=== PATIENT | male | born 1990 | race Caucasian/White ===

== ENCOUNTER 2024-06-11 07:19 | Emergency (ER) | payer OTHER ==
[2024-06-11] MEDS ORDERED: Sodium Chloride 0.9% 10 ML Syringe FLUSH PRN (07:22)
[2024-06-11 07:28] LABS: APPEARANCE,URINE CLEAR (CLEAR); BILIRUBIN,URINE NEGATIVE (NEGATIVE); COLOR,URINE YELLOW (YELLOW); GLUCOSE,URINE NEGATIVE (NEGATIVE); KETONES,URINE NEGATIVE (NEGATIVE); LEUKOCYTE ESTERASE,URINE NEGATIVE (NEGATIVE); NITRITE,URINE NEGATIVE (NEGATIVE); OCCULT BLOOD,URINE MODERATE (NEGATIVE); PROTEIN,URINE 30 mg/dL (NEGATIVE); UROBILINOGEN,URINE 0.2 EU/dL (0.2-1.0)
[2024-06-11] MEDS: Sodium Chloride 0.9% 1,000 ML IV ONE (07:32)
[2024-06-11 07:34] LABS: BACTERIA,URINE NOT SEEN /HPF (NOT SEEN); EPITHELIAL CELLS,URINE NOT SEEN /HPF (NOT SEEN); WBC,URINE NOT SEEN /HPF (0-5)
[2024-06-11 07:35] LABS: MUCUS,URINE OCCASIONAL /HPF (NOT SEEN)
[2024-06-11] MEDS: Ketorolac 30 MG/ML SDV IVPUSH ONE (07:36)
[2024-06-11] MEDS: Ondansetron 4 MG/2 ML SDV IVPUSH PRN (07:39)
[2024-06-11] MEDS: Tamsulosin 0.4 MG Cap.ER PO ONE (08:51)
[2024-06-11] MEDS: Take Home: Ketorolac 10 MG Tab, 4 Tab Pack PO ONE (09:05)
== END 2024-06-11 09:10 | disposition home or self-care (01) ==
LOC: CC.ED 07:19
DX: N20.0 Calculus of kidney (principal); Z79.51 Long term (current) use of inhaled steroids; Z79.899 Other long term (current) drug therapy
CPT/HCPCS: 74176; 81001; 96361; 96374; 96375; 99284; 99284-25; A9270-GY; J1885; J2405; J7030

== ENCOUNTER 2024-09-08 08:35 | Emergency (ER) | payer OTHER ==
[2024-09-08] MEDS ORDERED: Naloxone 2 MG/2 ML Syringe IVPUSH PRN (08:50)
[2024-09-08 08:59] LABS: APPEARANCE,URINE CLEAR (CLEAR); BASOPHILS ABSOLUTE AUTO 0.02 10^3/uL (0.00-0.50); BASOPHILS PERCENT AUTO 0.3 % (0-1); BILIRUBIN,URINE NEGATIVE (NEGATIVE); COLOR,URINE YELLOW (YELLOW); EOSINOPHILS ABSOLUTE AUTO 0.15 10^3/uL (0.00-1.50); GLUCOSE,URINE NEGATIVE (NEGATIVE); HEMATOCRIT 43.2 % (42.0-52.0); HEMOGLOBIN 14.6 g/dL (14.0-18.0); IMMATURE GRAN ABSOLUTE AUTO 0.02 10^3/uL (0.00-0.49); IMMATURE GRAN PERCENT AUTO 0.3 % (0.0-4.9); KETONES,URINE NEGATIVE (NEGATIVE); LEUKOCYTE ESTERASE,URINE NEGATIVE (NEGATIVE); LYMPHOCYTES ABSOLUTE AUTO 1.83 10^3/uL (0.60-5.00); LYMPHOCYTES PERCENT AUTO 24.1 % (24-44); MEAN CORPUSCULAR HEMOGLOBIN 30.2 pg (27.0-32.0); MEAN CORPUSCULAR HGB CONC 33.8 g/dL (32.0-36.0); MEAN CORPUSCULAR VOLUME 89.4 fL (83.0-97.0); MONOCYTES ABSOLUTE AUTO 0.65 10^3/uL (0.00-1.50); MONOCYTES PERCENT AUTO 8.6 % (0-10); NEUTROPHILS ABSOLUTE AUTO 4.92 x10^3/uL (1.80-8.00); NEUTROPHILS PERCENT AUTO 64.7 % (41-71); NITRITE,URINE NEGATIVE (NEGATIVE); OCCULT BLOOD,URINE NEGATIVE (NEGATIVE); PLATELET COUNT,PLT 221 10^3/uL (150-400); PROTEIN,URINE NEGATIVE (NEGATIVE); RED BLOOD CELL COUNT 4.83 x10^6/uL (4.50-6.00); UROBILINOGEN,URINE 0.2 EU/dL (0.2-1.0); WHITE BLOOD CELL COUNT,WBC 7.6 10^3/uL (4.0-11.0)
[2024-09-08 09:17] LABS: ALBUMIN 3.9 g/dL (3.4-5.0); BILIRUBIN TOTAL 0.7 mg/dL (0.0-1.0); C-REACTIVE PROTEIN 2.24 mg/dL (<=0.50); CALCIUM 9.3 mg/dL (8.4-10.1); CREATININE 1.1 mg/dL (0.7-1.3); EST CRCL DRUG DOSING (CG) 106.94 mL/min; POTASSIUM,K 4.5 mEq/L (3.5-5.0); PROTEIN TOTAL,TP 7.5 g/dL (6.4-8.2)
[2024-09-08] MEDS: HYDROmorphone 1 MG/ML Syringe IVPUSH ONE (09:26)
[2024-09-08] MEDS: Sodium Chloride 0.9% 1,000 ML IV ONE (09:26)
[2024-09-08] MEDS: Iopamidol 755 Mg/ML 100 ML Bottle IVPUSH ONE (10:35)
[2024-09-08] MEDS: Ketorolac 30 MG/ML SDV IVPUSH ONE (10:57)
== END 2024-09-08 11:13 | disposition home or self-care (01) ==
LOC: CC.ED 08:35
DX: K63.89 Other specified diseases of intestine (principal); J45.909 Unspecified asthma, uncomplicated; K21.9 Gastro-esophageal reflux disease without esophagitis; Z79.899 Other long term (current) drug therapy
CPT/HCPCS: 36415; 74177; 80053; 81003; 85025; 86140; 96361; 96374; 96375; 99284; 99284-25; J1171; J1885; J7030; Q9967

== ENCOUNTER 2024-09-14 17:22 | Emergency (ER) | payer OTHER ==
[2024-09-14] MEDS: Ondansetron 4 MG/2 ML SDV IVPUSH STA (17:33)
[2024-09-14] MEDS: Ketorolac 30 MG/ML SDV IVPUSH ONE (17:34)
[2024-09-14 17:40] LABS: BASOPHILS ABSOLUTE AUTO 0.02 10^3/uL (0.00-0.50); BASOPHILS PERCENT AUTO 0.2 % (0-1); EOSINOPHILS ABSOLUTE AUTO 0.12 10^3/uL (0.00-1.50); EOSINOPHILS PERCENT AUTO 1.3 % (0-6); HEMATOCRIT 44.2 % (42.0-52.0); HEMOGLOBIN 15.2 g/dL (14.0-18.0); IMMATURE GRAN ABSOLUTE AUTO 0.06 10^3/uL (0.00-0.49); IMMATURE GRAN PERCENT AUTO 0.6 % (0.0-4.9); LYMPHOCYTES ABSOLUTE AUTO 2.63 10^3/uL (0.60-5.00); LYMPHOCYTES PERCENT AUTO 27.5 % (24-44); MEAN CORPUSCULAR HEMOGLOBIN 29.9 pg (27.0-32.0); MEAN CORPUSCULAR HGB CONC 34.4 g/dL (32.0-36.0); MONOCYTES ABSOLUTE AUTO 0.73 10^3/uL (0.00-1.50); MONOCYTES PERCENT AUTO 7.6 % (0-10); NEUTROPHILS PERCENT AUTO 62.8 % (41-71); PLATELET COUNT,PLT 335 10^3/uL (150-400); RED BLOOD CELL COUNT 5.08 x10^6/uL (4.50-6.00); WHITE BLOOD CELL COUNT,WBC 9.6 10^3/uL (4.0-11.0)
[2024-09-14 18:08] LABS: ALANINE AMINOTRANSFERASE,ALT 100 U/L (12-78); ALBUMIN 4.2 g/dL (3.4-5.0); ALKALINE PHOSPHATASE 108 U/L (46-116); ASPARTATE AMNIOTRANSFERASE,AST 21 U/L (15-37); BILIRUBIN TOTAL 0.7 mg/dL (0.0-1.0); BLOOD UREA NITROGEN,BUN 18 mg/dL (7-18); CALCIUM 9.4 mg/dL (8.4-10.1); CARBON DIOXIDE,CO2 25 mmol/L (21-32); CHLORIDE,CL 102 mEq/L (98-106); CREATININE 1.3 mg/dL (0.7-1.3); GLUCOSE RANDOM 149 mg/dL (75-99); PROTEIN TOTAL,TP 7.9 g/dL (6.4-8.2); SODIUM,NA 140 mEq/L (136-145)
[2024-09-14 18:09] LABS: C-REACTIVE PROTEIN < 0.50 mg/dL (<=0.50); ESTIMATED GFR 74 mL/min (>=60)
== END 2024-09-14 18:10 | disposition home or self-care (01) ==
LOC: CC.ED 17:22
DX: N20.0 Calculus of kidney (principal); J45.909 Unspecified asthma, uncomplicated; K21.9 Gastro-esophageal reflux disease without esophagitis; Z79.899 Other long term (current) drug therapy
CPT/HCPCS: 36415; 74176; 80053; 85025; 86140; 96374; 96375; 99284-25; J1885; J2405

== ENCOUNTER 2024-09-25 08:17 | Inpatient (IN) | payer OTHER ==
[2024-09-25] MEDS: Acetaminophen 500 MG Tab PO ONE (08:32)
[2024-09-25] MEDS: Lactated Ringers 1,000 ML IV ONE ×2 (08:38→09:53)
[2024-09-25] MEDS: Acetaminophen 500 MG Tab ONE (08:39)
[2024-09-25 08:41] LABS: BASOPHILS ABSOLUTE AUTO 0.04 10^3/uL (0.00-0.50); BASOPHILS PERCENT AUTO 0.4 % (0-1); EOSINOPHILS ABSOLUTE AUTO 0.09 10^3/uL (0.00-1.50); EOSINOPHILS PERCENT AUTO 0.9 % (0-6); HEMATOCRIT 42.7 % (42.0-52.0); HEMOGLOBIN 14.7 g/dL (14.0-18.0); IMMATURE GRAN ABSOLUTE AUTO 0.03 10^3/uL (0.00-0.49); IMMATURE GRAN PERCENT AUTO 0.3 % (0.0-4.9); LYMPHOCYTES ABSOLUTE AUTO 1.01 10^3/uL (0.60-5.00); LYMPHOCYTES PERCENT AUTO 9.7 % (24-44); MEAN CORPUSCULAR HEMOGLOBIN 30.1 pg (27.0-32.0); MEAN CORPUSCULAR HGB CONC 34.4 g/dL (32.0-36.0); MEAN CORPUSCULAR VOLUME 87.3 fL (83.0-97.0); MONOCYTES ABSOLUTE AUTO 1.06 10^3/uL (0.00-1.50); MONOCYTES PERCENT AUTO 10.2 % (0-10); NEUTROPHILS ABSOLUTE AUTO 8.13 x10^3/uL (1.80-8.00); NEUTROPHILS PERCENT AUTO 78.5 % (41-71); PLATELET COUNT,PLT 249 10^3/uL (150-400); RED BLOOD CELL COUNT 4.89 x10^6/uL (4.50-6.00); WHITE BLOOD CELL COUNT,WBC 10.4 10^3/uL (4.0-11.0)
[2024-09-25 08:54] LABS: ALBUMIN 4.1 g/dL (3.4-5.0); BILIRUBIN TOTAL 1.2 mg/dL (0.0-1.0); CALCIUM 9.1 mg/dL (8.4-10.1); CREATININE 1.3 mg/dL (0.7-1.3); EST CRCL DRUG DOSING (CG) 87.05 mL/min; MAGNESIUM 1.7 mg/dL (1.8-2.4); POTASSIUM,K 3.9 mEq/L (3.5-5.0); PROTEIN TOTAL,TP 7.9 g/dL (6.4-8.2)
[2024-09-25] MEDS: Ketorolac 30 MG/ML SDV IVPUSH ONE (08:59)
[2024-09-25 10:07] LABS: CORONAVIRUS COVID-19 NAA NEGATIVE (NEGATIVE); INFLUENZA A NAA NEGATIVE (NEGATIVE); INFLUENZA B NAA NEGATIVE (NEGATIVE); RESPIRATORY SYNCYTIAL VIR NAA NEGATIVE (NEGATIVE)
[2024-09-25 10:26] LABS: APPEARANCE,URINE CLEAR (CLEAR); BILIRUBIN,URINE NEGATIVE (NEGATIVE); COLOR,URINE YELLOW (YELLOW); GLUCOSE,URINE NEGATIVE (NEGATIVE); KETONES,URINE NEGATIVE (NEGATIVE); LEUKOCYTE ESTERASE,URINE NEGATIVE (NEGATIVE); NITRITE,URINE NEGATIVE (NEGATIVE); OCCULT BLOOD,URINE NEGATIVE (NEGATIVE); PROTEIN,URINE TRACE mg/dL (NEGATIVE); UROBILINOGEN,URINE 0.2 EU/dL (0.2-1.0)
[2024-09-25 10:34] LABS: BACTERIA,URINE OCCASIONAL /HPF (NOT SEEN); EPITHELIAL CELLS,URINE OCCASIONAL /HPF (NOT SEEN)
[2024-09-25] MEDS: Azithromycin 250 MG Tab PO ONE (10:40)
[2024-09-25] MEDS: cefTRIAXone 2 GM Vial IVPUSH ONE (10:40)
[2024-09-25] MEDS ORDERED: Polyethylene Glycol 3350 Powder 17 GM Packet PO PRN (11:01)
[2024-09-25] MEDS ORDERED: Docusate Sodium 100 MG Cap PO PRN (11:01)
[2024-09-25] MEDS ORDERED: Ondansetron 4 MG Tab.DIS PO PRN (11:01)
[2024-09-25] MEDS ORDERED: Albuterol 6.7 GM Inhaler INH PRN (11:01)
[2024-09-25] MEDS: Sodium Chloride 0.9% 1,000 ML IV SCH (11:53)
[2024-09-25] MEDS: Acetaminophen 325 MG Tab PO PRN (13:00)
[2024-09-25] MEDS: Ketorolac 30 MG/ML SDV IVPUSH PRN (15:06)
[2024-09-25] MEDS: Albuterol/Ipratropium 3.0-0.5 MG/3 ML Neb Soln NEB PRN (17:15)
[2024-09-25] MEDS ORDERED: Naloxone 2 MG/2 ML Syringe IVPUSH PRN (17:46)
[2024-09-25] MEDS: Morphine 4 MG/ML VIAL IVPUSH PRN (18:00)
[2024-09-25 18:15] LABS: BASOPHILS ABSOLUTE AUTO 0.03 10^3/uL (0.00-0.50); BASOPHILS PERCENT AUTO 0.4 % (0-1); EOSINOPHILS ABSOLUTE AUTO 0.05 10^3/uL (0.00-1.50); EOSINOPHILS PERCENT AUTO 0.6 % (0-6); HEMATOCRIT 37.7 % (42.0-52.0); HEMOGLOBIN 12.7 g/dL (14.0-18.0); IMMATURE GRAN ABSOLUTE AUTO 0.02 10^3/uL (0.00-0.49); IMMATURE GRAN PERCENT AUTO 0.2 % (0.0-4.9); LYMPHOCYTES ABSOLUTE AUTO 0.84 10^3/uL (0.60-5.00); LYMPHOCYTES PERCENT AUTO 10.2 % (24-44); MEAN CORPUSCULAR HEMOGLOBIN 29.8 pg (27.0-32.0); MEAN CORPUSCULAR HGB CONC 33.7 g/dL (32.0-36.0); MEAN CORPUSCULAR VOLUME 88.5 fL (83.0-97.0); MONOCYTES ABSOLUTE AUTO 1.03 10^3/uL (0.00-1.50); MONOCYTES PERCENT AUTO 12.6 % (0-10); NEUTROPHILS ABSOLUTE AUTO 6.23 x10^3/uL (1.80-8.00); PLATELET COUNT,PLT 206 10^3/uL (150-400); RED BLOOD CELL COUNT 4.26 x10^6/uL (4.50-6.00); WHITE BLOOD CELL COUNT,WBC 8.2 10^3/uL (4.0-11.0)
[2024-09-25 18:32] LABS: ALANINE AMINOTRANSFERASE,ALT 90 U/L (12-78); ALBUMIN 3.5 g/dL (3.4-5.0); ALKALINE PHOSPHATASE 101 U/L (46-116); ASPARTATE AMNIOTRANSFERASE,AST 56 U/L (15-37); BILIRUBIN TOTAL 0.8 mg/dL (0.0-1.0); BLOOD UREA NITROGEN,BUN 11 mg/dL (7-18); CALCIUM 8.6 mg/dL (8.4-10.1); CARBON DIOXIDE,CO2 25 mmol/L (21-32); CHLORIDE,CL 104 mEq/L (98-106); CREATININE 1.2 mg/dL (0.7-1.3); EST CRCL DRUG DOSING (CG) 94.31 mL/min; ESTIMATED GFR 81 mL/min (>=60); GLUCOSE RANDOM 119 mg/dL (75-99); MAGNESIUM 1.5 mg/dL (1.8-2.4); POTASSIUM,K 3.8 mEq/L (3.5-5.0); PROTEIN TOTAL,TP 6.9 g/dL (6.4-8.2); SODIUM,NA 138 mEq/L (136-145); TSH ULTRASENSITIVE 1.06 uIU/mL (0.36-5.60)
[2024-09-25] MEDS: Iopamidol 755 Mg/ML 100 ML Bottle IVPUSH ONE (18:37)
[2024-09-25] MEDS: Magnesium Oxide 400 MG Tab PO SCH (19:20)
[2024-09-25] MEDS: Mirtazapine 15 MG Tab PO SCH (19:20)
[2024-09-25] MEDS: Magnesium Sulfate/Water Premix 2 GM in Premix Bag 1 BAG IV ONE (19:20)
[2024-09-25] MEDS ORDERED: Piperacillin/Tazobactam 4.5 GM in Sodium Chloride 0.9% 100 ML IV SCH (19:45)
[2024-09-25] MEDS ORDERED: Pantoprazole 40 MG Vial IVPUSH SCH (20:00)
[2024-09-25] MEDS: Ibuprofen 200 MG Tab PO PRN (20:03)
[2024-09-25] MEDS: Piperacillin/Tazobactam 4.5 GM in Sodium Chloride 0.9% 100 ML IV ONE (21:19)
[2024-09-26] MEDS: Piperacillin/Tazobactam 4.5 GM in Sodium Chloride 0.9% 100 ML IV SCH (01:53)
[2024-09-26] MEDS: Pantoprazole 40 MG Tab.CR PO SCH (06:27)
[2024-09-26 07:09] LABS: BASOPHILS ABSOLUTE AUTO 0.04 10^3/uL (0.00-0.50); BASOPHILS PERCENT AUTO 0.5 % (0-1); EOSINOPHILS PERCENT AUTO 1.4 % (0-6); HEMATOCRIT 38.2 % (42.0-52.0); HEMOGLOBIN 12.7 g/dL (14.0-18.0); IMMATURE GRAN ABSOLUTE AUTO 0.03 10^3/uL (0.00-0.49); IMMATURE GRAN PERCENT AUTO 0.4 % (0.0-4.9); LYMPHOCYTES PERCENT AUTO 10.9 % (24-44); MEAN CORPUSCULAR HEMOGLOBIN 30.1 pg (27.0-32.0); MEAN CORPUSCULAR HGB CONC 33.2 g/dL (32.0-36.0); MEAN CORPUSCULAR VOLUME 90.5 fL (83.0-97.0); MONOCYTES ABSOLUTE AUTO 0.66 10^3/uL (0.00-1.50); NEUTROPHILS ABSOLUTE AUTO 5.73 x10^3/uL (1.80-8.00); NEUTROPHILS PERCENT AUTO 77.8 % (41-71); PLATELET COUNT,PLT 188 10^3/uL (150-400); RED BLOOD CELL COUNT 4.22 x10^6/uL (4.50-6.00); WHITE BLOOD CELL COUNT,WBC 7.4 10^3/uL (4.0-11.0)
[2024-09-26 07:20] LABS: CALCIUM 8.3 mg/dL (8.4-10.1); CREATININE 1.2 mg/dL (0.7-1.3); EST CRCL DRUG DOSING (CG) 94.31 mL/min; MAGNESIUM 2.1 mg/dL (1.8-2.4); POTASSIUM,K 4.2 mEq/L (3.5-5.0)
[2024-09-26] MEDS: Azithromycin 250 MG Tab PO SCH (07:55)
[2024-09-26] MEDS: Loratadine 10 MG Tab PO SCH (07:55)
[2024-09-26] MEDS: SALMETEROL INH SCH (07:57)
[2024-09-26] MEDS: FLUTICASONE PROPION INH SCH (07:57)
[2024-09-26] MEDS ORDERED: cefTRIAXone 1 GM Vial IVPUSH SCH (08:00)
[2024-09-26] MEDS: Benzonatate 100 MG Cap PO PRN (22:22)
[2024-09-27 07:36] LABS: CALCIUM 8.4 mg/dL (8.4-10.1); EST CRCL DRUG DOSING (CG) 113.17 mL/min; MAGNESIUM 1.9 mg/dL (1.8-2.4); POTASSIUM,K 4.4 mEq/L (3.5-5.0)
[2024-09-27 07:43] LABS: BASOPHILS ABSOLUTE AUTO 0.03 10^3/uL (0.00-0.50); BASOPHILS PERCENT AUTO 0.5 % (0-1); EOSINOPHILS PERCENT AUTO 3.6 % (0-6); HEMATOCRIT 35.9 % (42.0-52.0); IMMATURE GRAN ABSOLUTE AUTO 0.03 10^3/uL (0.00-0.49); IMMATURE GRAN PERCENT AUTO 0.5 % (0.0-4.9); LYMPHOCYTES ABSOLUTE AUTO 1.08 10^3/uL (0.60-5.00); LYMPHOCYTES PERCENT AUTO 19.3 % (24-44); MEAN CORPUSCULAR HEMOGLOBIN 30.1 pg (27.0-32.0); MEAN CORPUSCULAR HGB CONC 33.4 g/dL (32.0-36.0); MONOCYTES ABSOLUTE AUTO 0.74 10^3/uL (0.00-1.50); MONOCYTES PERCENT AUTO 13.2 % (0-10); NEUTROPHILS ABSOLUTE AUTO 3.51 x10^3/uL (1.80-8.00); NEUTROPHILS PERCENT AUTO 62.9 % (41-71); PLATELET COUNT,PLT 184 10^3/uL (150-400); RED BLOOD CELL COUNT 3.99 x10^6/uL (4.50-6.00); WHITE BLOOD CELL COUNT,WBC 5.6 10^3/uL (4.0-11.0)
== END 2024-09-27 14:15 | disposition home or self-care (01) | DRG 195 ==
LOC: CC.ED 08:17 → CC.MS 10:43 → OBSVTOIN 09-26 09:49
PROVIDERS: ADMIT Nurse Practitioner; ATTEND Nurse Practitioner
DX: J18.9 Pneumonia, unspecified organism (principal); K21.9 Gastro-esophageal reflux disease without esophagitis; J45.909 Unspecified asthma, uncomplicated; E86.0 Dehydration; Z79.899 Other long term (current) drug therapy; Z79.51 Long term (current) use of inhaled steroids; Z98.890 Other specified postprocedural states; Z87.442 Personal history of urinary calculi
CPT/HCPCS: 0241U; 36415; 71045; 71275; 74177; 80048; 80053; 81001; 83605; 83735; 84443; 84484; 85025; 85651; 86308; 87040; 87070; 87205; 87428-QW; 87651-QW; 87899; 93005; 93010; 94640; 96361; 96365; 96366; 96367; 96374; 96375; 96376; 99223; 99233; 99238; 99285-25; A9270-GY; G0378; J0696; J1885; J2270; J2543; J3475; J3490; J7030; J7120; J7620-GY; Q9967

== ENCOUNTER 2024-10-27 11:44 | Emergency (ER) | payer OTHER ==
[2024-10-27 12:05] LABS: BASOPHILS ABSOLUTE AUTO 0.02 10^3/uL (0.00-0.50); BASOPHILS PERCENT AUTO 0.6 % (0-1); EOSINOPHILS ABSOLUTE AUTO 0.04 10^3/uL (0.00-1.50); EOSINOPHILS PERCENT AUTO 1.2 % (0-6); HEMOGLOBIN 14.1 g/dL (14.0-18.0); IMMATURE GRAN ABSOLUTE AUTO 0.02 10^3/uL (0.00-0.49); IMMATURE GRAN PERCENT AUTO 0.6 % (0.0-4.9); LYMPHOCYTES ABSOLUTE AUTO 0.52 10^3/uL (0.60-5.00); LYMPHOCYTES PERCENT AUTO 15.2 % (24-44); MEAN CORPUSCULAR HEMOGLOBIN 30.1 pg (27.0-32.0); MEAN CORPUSCULAR HGB CONC 33.6 g/dL (32.0-36.0); MEAN CORPUSCULAR VOLUME 89.7 fL (83.0-97.0); MONOCYTES ABSOLUTE AUTO 0.53 10^3/uL (0.00-1.50); MONOCYTES PERCENT AUTO 15.5 % (0-10); NEUTROPHILS PERCENT AUTO 66.9 % (41-71); PLATELET COUNT,PLT 147 10^3/uL (150-400); RED BLOOD CELL COUNT 4.68 x10^6/uL (4.50-6.00); WHITE BLOOD CELL COUNT,WBC 3.4 10^3/uL (4.0-11.0)
[2024-10-27 12:18] LABS: ALBUMIN 4.1 g/dL (3.4-5.0); BILIRUBIN TOTAL 0.6 mg/dL (0.0-1.0); C-REACTIVE PROTEIN 3.24 mg/dL (<=0.50); CALCIUM 8.8 mg/dL (8.4-10.1); CREATININE 1.2 mg/dL (0.7-1.3); EST CRCL DRUG DOSING (CG) 97.1 mL/min; POTASSIUM,K 4.4 mEq/L (3.5-5.0); PROTEIN TOTAL,TP 7.7 g/dL (6.4-8.2)
== END 2024-10-27 12:44 | disposition home or self-care (01) ==
LOC: SUPCPDRO 11:44 → CC.ED 11:44
DX: J10.1 Influenza due to other identified influenza virus with other respiratory manifestations (principal); J45.909 Unspecified asthma, uncomplicated; K21.9 Gastro-esophageal reflux disease without esophagitis; F17.210 Nicotine dependence, cigarettes, uncomplicated; Z79.51 Long term (current) use of inhaled steroids; Z79.899 Other long term (current) drug therapy
CPT/HCPCS: 36415; 71046; 80053; 85025; 86140; 87428-QW; 99283; 99285